=== PATIENT | male | born 1955 | race Caucasian/White ===

== ENCOUNTER 2017-03-06 14:05 | Emergency (ER) | payer OTHER ==
[~2017-03-06] VITALS: Ht 162.6 cm; Wt 67.1 kg
[2017-03-06 14:08] VITALS: Ht 162.6 cm; Wt 67.1 kg
[2017-03-06 16:51] LABS: ADD SCAN DIFF NO
[2017-03-06 16:54] LABS: BASOPHIL # 0.1 10^3/ul (0.0-0.1); BASOPHILS % 0.8 % (0.0-2.0); EOSINOPHILS # 1.1 10^3/ul (0.0-0.5); EOSINOPHILS % 12.7 % (0.0-7.0); HEMATOCRIT 39.8 % (42.0-52.0); HEMOGLOBIN 13.8 g/dl (14.0-18.0); LYMPHOCYTES # 1.7 10^3/ul (0.8-2.9); LYMPHOCYTES % 18.5 % (15.0-51.0); MEAN CORPUSCULAR HEMOGLOBIN 33.1 pg (29.0-33.0); MEAN CORPUSCULAR HGB CONC 34.7 g/dl (32.0-37.0); MEAN CORPUSCULAR VOLUME 95.4 fl (82.0-101.0); MEAN PLATELET VOLUME 8.9 fl (7.4-10.4); MONOCYTES % 10.9 % (0.0-11.0); NEUTROPHIL # 5.1 10^3/ul (1.6-7.5); NEUTROPHILS % 56.9 % (39.0-77.0); PLATELET COUNT 386 10^3/UL (140-415); RED BLOOD COUNT 4.17 10^6/ul (4.70-6.10); WHITE BLOOD COUNT 8.9 10^3/ul (4.8-10.8)
[2017-03-06 17:04] LABS: ALBUMIN 4.8 g/dl (3.3-4.9); POTASSIUM 4.2 mmol/L (3.5-5.1)
[2017-03-06 17:06] LABS: BILIRUBIN,INDIRECT 0.6 mg/dl (0-1.1); BILIRUBIN,TOTAL 0.6 mg/dl (0.2-1.3); CREATININE 0.55 mg/dl (0.61-1.24)
[2017-03-06 17:07] LABS: ALBUMIN/GLOBULIN RATIO 1.09; CALCIUM 10.3 mg/dl (8.4-10.2); TOTAL PROTEIN 9.2 g/dl (6.1-8.1)
--- NOTE | 2017-03-06 17:24 | RADRPT ---
PROCEDURE: Chest x-ray CLINICAL INDICATION: Neck swelling TECHNIQUE: Chest single view COMPARISON: None FINDINGS: The heart is normal in size. The pulmonary vessels are normal in caliber. There are calcified nodul ar densities in the right upper lung likely representing old granuloma. Lungs otherwise clear. Cos tophrenic angles are sharp. Bony thorax is unremarkable IMPRESSION: No acute cardiopulmonary disease. 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
[2017-03-06] MEDS ORDERED: IOHEXOL 300MG/ML 150 ML BTL ONE (18:57)
[2017-03-06] MEDS ORDERED: SOD CHLORIDE 0.9% 100 ML ONE (18:57)
--- NOTE | 2017-03-06 19:25 | RADRPT ---
PROCEDURE: CT soft tissue neck with contrast CLINICAL INDICATION: Swelling in left anterior neck TECHNIQUE: A CT of the neck was performed utilizing axial sections from the from the thoracic inle t through the skull base with contrast. Coronal and sagittal images were also reformatted. 100 cc of Omnipaque-300 intravenous contrast was administered. The exam CTDI vol = 8.30 mGy and DLP = 209.16 mGy-cm. COMPARISON: None available FINDINGS: Visualized intracranial structures and skull base: Incidental arachnoid cyst of the posterior fossa is noted with no density alteration seen in the brain parenchyma, the fourth ventricle midline. The included orbits, paranasal sinuses and mastoid air cells are clear Nasopharynx, oropharynx and tongue base: Dental amalgam artifact limits fine evaluation but there is no evidence of mass or inflammation, the parapharyngeal fat planes are preserved Parotid and funeral driver spaces: The glands and muscles of mastication show no intrinsic abnormality. There is suggestion of periapical lucency surrounding the most posterior left mandibular molar (ser ies 3 image 31) but cannot exclude dental infection without osseous changes of the mandible Carotid spaces: The most striking finding is corresponding to the region of concern in the left neck deep to the sternocleidomastoid muscle, the abnormality having an irregular peripheral rim of enhan cement and central hypodensity the largest component of the suspected abscess estimated at 3.1 x 3 x 3.5 cm in AP, transverse and cranial caudal dimensions respectively (series 3 image 38 - 41). Ther e are additional satellite abscesses along the more anterior inferior aspect of the left carotid spa ce extending to the level of the carotid bifurcation. The dominant abscess is posterior to the mid internal and external carotid arteries.. There is some enhancement seen within the small left inter nal jugular vein caudal to the abnormalities, the right internal jugular vein is normal. Associated thrombosis of the left internal jugular vein is difficult to exclude. The right carotid space is r emarkable for level III adenopathy measuring 1.7 x 1.4 cm (series 3 image 39). There is extrinsic mass effect upon the right jugular vein Submandibular and submental spaces: The glands and lymph nodes are normal there is no evidence of in flammation. Minimal thickening of the left platysma is likely related to the left carotid space abn ormalities Posterior triangles: No abnormalities of significance are seen Larynx and infraglottic airway: The epiglottis is unremarkable. Diffuse nonspecific left periglotti c edema is noted. The left aryepiglottic fold and piriform sinus are irregular, a hypodense area al tatiana the left focal cord estimated at 1.8 x 1.3 cm cannot exclude a possible mass (series 3 image 50) . The trachea is unremarkable Visceral space: The thyroid gland shows no abnormality. The cervical esophagus is unremarkable Supraclavicular fossae: The lymph nodes are within limits of normal for size bilaterally Visualized thorax: No abnormalities of significance are seen Cervical spine: Moderate multilevel degenerative changes are noted without evidence of acute osseous abnormality, lytic or blastic lesion RPTAT:HJJR IMPRESSION: 1. Irregularly marginated peripherally enhancing centrally hypodense left carotid space collections most likely reflect abscesses, the largest estimated at 2.5 x 3.1 x 3 cm deep to the mid sternoclei domastoid muscle. Necrotic lymphadenopathy is a differential diagnostic possibility. 2. Partial thrombosis of the mid left internal jugular vein is difficult to exclude, the more cauda l aspects of the left internal jugular vein show normal enhancement. 3. Asymmetric fullness in the region of the left vocal cord and aryepiglottic fold may be reactive edema related to the left periglottic space edema but underlying laryngeal neoplasm is difficult to exclude an direct visualization should be considered. 4. Right level III carotid lymphadenopathy of 1.7 x 1.4 cm. 5. Equivocal subtle periapical lucency at the most posterior left molar unable to exclude tooth inf ection. Physician Madelin Date Time Electronically viewed and signed by Physician Madelin on 03/06/2017 19:25 /
[2017-03-06] MEDS ORDERED: AMOX1TAB10 PO (19:45)
--- NOTE | 2017-03-06 20:21 | ERD ---
ER Documentation Chief Complaint Date/Time DATE: 03/06/17 TIME: 20:11 Chief Complaint left side neck swelling x 1 mos, no airway compromise HPI This is a 61-year-old male presents emergency department for left-sided neck swelling and pain 1 month. Patient states he began having a sore throat about 1 month ago and was given amoxicillin. Since then, he has noticed swelling to the left side of his neck. Patient states he was seen by his primary care provider and was told to follow-up with a specialist Dr. Mcnally. Patient is unable to make appointment. No difficulty swallowing or drooling. Denies sore throat. No fevers or chills. Denies chest pain, shortness of breath or difficulty breathing. ROS All systems reviewed and are negative except as per history of present illness. Medications Home Meds Active Scripts Amoxicillin/Potassium Clav (Amox-Clav 875-125 mg Tablet) 875-125 mg Tab, 1 TAB PO BID for 7 Days, #14 TAB Prov:MEDHAT MULLEN NP 03/06/17 PMhx/Soc Hx Miscellaneous Medical Probl: Yes (HODGKIN'S LYMPHOMA) Physical Exam Vitals Vital Signs Date Time Temp Pulse Resp B/P Pulse Ox O2 Delivery O2 Flow Rate FiO2 03/06/17 14:08 98.1 77 18 143/72 99 Physical Exam Const: No acute distress, alert Head: Atraumatic Eyes: Normal Conjunctiva ENT: Normal External Ears, Nose and Mouth. Neck: Full range of motion..~ No meningismus. Resp: Clear to auscultation bilaterally. No wheezing, rhonchi or crackles. No stridor or labored breathing. Cardio: Regular rate and rhythm, no murmurs Abd: Soft, non tender, non distended. Normal bowel sounds Skin: No petechiae or rashes Back: No midline or flank tenderness Ext: No cyanosis, or edema Neur: Awake and alert Psych: Normal Mood and Affect Result Diagram: 03/06/17 1640 03/06/17 1640 Results 24 hrs Laboratory Tests Test 03/06/17 16:40 White Blood Count 8.910^3/ul Red Blood Count 4.1710^6/ul Hemoglobin 13.8g/dl Hematocrit 39.8% Mean Corpuscular Volume 95.4fl Mean Corpuscular Hemoglobin 33.1pg Mean Corpuscular Hemoglobin Concent 34.7g/dl Red Cell Distribution Width 13.0% Platelet Count 46066^3/UL Mean Platelet Volume 8.9fl Neutrophils % 56.9% Lymphocytes % 18.5% Monocytes % 10.9% Eosinophils % 12.7% Basophils % 0.8% Nucleated Red Blood Cells % 0.0/100WBC Neutrophils # 5.110^3/ul Lymphocytes # 1.710^3/ul Monocytes # 1.010^3/ul Eosinophils # 1.110^3/ul Basophils # 0.110^3/ul Nucleated Red Blood Cells # 0.010^3/ul Sodium Level 134mmol/L Potassium Level 4.2mmol/L Chloride Level 94mmol/L Carbon Dioxide Level 28mmol/L Anion Gap 16 Blood Urea Nitrogen 7mg/dl Creatinine 0.55mg/dl Glucose Level 103mg/dl Calcium Level 10.3mg/dl Total Bilirubin 0.6mg/dl Direct Bilirubin 0.00mg/dl Indirect Bilirubin 0.6mg/dl Aspartate Amino Transf (AST/SGOT) 43IU/L Alanine Aminotransferase (ALT/SGPT) 26IU/L Alkaline Phosphatase 88IU/L Total Protein 9.2g/dl Albumin 4.8g/dl Globulin 4.40g/dl Albumin/Globulin Ratio 1.09 Current Medications Medications (Trade) Dose Ordered Sig/[place] Route PRN Reason Start Time Stop Time Status Last Admin Dose Admin IV Flush 10 ml 10 ml STK-MED ONCE .ROUTE 03/06/17 18:57 03/06/17 18:58 DC 03/06/17 19:05 Sodium Chloride (NS) 100 ml @ ud STK-MED ONCE .ROUTE 03/06/17 18:57 03/06/17 18:58 DC 03/06/17 19:05 Iohexol (Omnipaque 300mg/ ml) 150 ml STK-MED ONCE .ROUTE 03/06/17 18:57 03/06/17 18:58 DC 03/06/17 19:05 Procedures/MDM ED COURSE: The patient was stable throughout ED course. I kept the patient and/or family informed of laboratory and diagnostic imaging results throughout the ED course. Laboratory CBC no significant anemia or infection CMP no significant electrolyte imbalance Microbiology Rapid strep negative Imaging Patient: DANIELLE GREENFIELD : 1955 Age: 61 Sex: M MR #: [id number] DOS: 03/06/171623 Ordering MD: MEDHAT MULLEN NP Location: [facility] Room/Bed: PROCEDURE: Chest x-ray CLINICAL INDICATION: Neck swelling TECHNIQUE: Chest single view COMPARISON: None FINDINGS: The heart is normal in size. The pulmonary vessels are normal in caliber. There are calcified nodular densities in the right upper lung likely representing old granuloma. Lungs otherwise clear. Costophrenic angles are sharp. Bony thorax is unremarkable IMPRESSION: No acute cardiopulmonary disease. 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 Coronal and sagittal images were also reformatted. 100 cc of Omnipaque-300 intravenous contrast was administered. The exam CTDI vol = 8.30 mGy and DLP = 209.16 mGy- cm. COMPARISON: None available FINDINGS: Visualized intracranial structures and skull base: Incidental arachnoid cyst of the posterior fossa is noted with no density alteration seen in the brain parenchyma, the fourth ventricle midline. The included orbits, paranasal sinuses and mastoid air cells are clear Nasopharynx, oropharynx and tongue base: Dental amalgam artifact limits fine evaluation but there is no evidence of mass or inflammation, the parapharyngeal fat planes are preserved Parotid and carbonizer tester spaces: The glands and muscles of mastication show no intrinsic abnormality. There is suggestion of periapical lucency surrounding the most posterior left mandibular molar (series 3 image 31) but cannot exclude dental infection without osseous changes of the mandible Carotid spaces: The most striking finding is corresponding to the region of concern in the left neck deep to the sternocleidomastoid muscle, the abnormality having an irregular peripheral rim of enhancement and central hypodensity the largest component of the suspected abscess estimated at 3.1 x 3 x 3.5 cm in AP, transverse and cranial caudal dimensions respectively (series 3 image 38 - 41). There are additional satellite abscesses along the more anterior inferior aspect of the left carotid space extending to the level of the carotid bifurcation. The dominant abscess is posterior to the mid internal and external carotid arteries.. There is some enhancement seen within the small left internal jugular vein caudal to the abnormalities, the right internal jugular vein is normal. Associated thrombosis of the left internal jugular vein is difficult to exclude. The right carotid space is remarkable for level III adenopathy measuring 1.7 x 1.4 cm (series 3 image 39). There is extrinsic mass effect upon the right jugular vein Submandibular and submental spaces: The glands and lymph nodes are normal there is no evidence of inflammation. Minimal thickening of the left platysma is likely related to the left carotid space abnormalities Posterior triangles: No abnormalities of significance are seen Larynx and infraglottic airway: The epiglottis is unremarkable. Diffuse nonspecific left periglottic edema is noted. The left aryepiglottic fold and piriform sinus are irregular, a hypodense area along the left focal cord estimated at 1.8 x 1.3 cm cannot exclude a possible mass (series 3 image 50). The trachea is unremarkable Visceral space: The thyroid gland shows no abnormality. The cervical esophagus is unremarkable Supraclavicular fossae: The lymph nodes are within limits of normal for size bilaterally Visualized thorax: No abnormalities of significance are seen Cervical spine: Moderate multilevel degenerative changes are noted without evidence of acute osseous abnormality, lytic or blastic lesion RPTAT:HJJR IMPRESSION: 1. Irregularly marginated peripherally enhancing centrally hypodense left carotid space collections most likely reflect abscesses, the largest estimated at 2.5 x 3.1 x 3 cm deep to the mid sternocleidomastoid muscle. Necrotic lymphadenopathy is a differential diagnostic possibility. 2. Partial thrombosis of the mid left internal jugular vein is difficult to exclude, the more caudal aspects of the left internal jugular vein show normal enhancement. 3. Asymmetric fullness in the region of the left vocal cord and aryepiglottic fold may be reactive edema related to the left periglottic space edema but underlying laryngeal neoplasm is difficult to exclude an direct visualization should be considered. 4. Right level III carotid lymphadenopathy of 1.7 x 1.4 cm. 5. Equivocal subtle periapical lucency at the most posterior left molar unable to exclude tooth infection. MDM: 61-year-old male presents to the emergency department for left-sided anterior neck swelling 1 month. No shortness of breath, difficult to breathing , chest pain, difficulty swallowing or drooling. Swelling is not painful to touch. Labs are unremarkable. CT neck soft tissue reviewed by radiologist as irregularly marginated peripherally enhancing centrally hypodense left carotid space collections most likely reflect abscesses, the largest estimated at 2.5 x 3.1 x 3cm Asymmetric fullness in the region of the left vocal cord and aryepiglottic fold may be reactive edema related to the left periglottic space edema but underlying laryngeal neoplasm is difficult to exclude an direct visualization should be considered. Right level III carotid lymphadenopathy. Patient's vital signs are stable. Remains afebrile. No difficulty breathing, difficulty swallowing or drooling. No muffled voice. Strep swab is negative. Labs are unremarkable. No significant infection or anemia. Spoke with Dr. Guzman regarding this patient and we agree that patient is appropriate for outpatient management with Augmentin and follow-up with Dr. Lopez as soon as possible. Differential diagnosis includes but not limited to abscess, necrotic lymphadenopathy, mass, laryngeal neoplasm, lymphadenopathy and deep space infection. Patient will be discharged with prescription for Augmentin and resources provided for Dr. Lopez. Instructed patient to follow-up with Dr. Lopez as soon as possible in the next 24-48 hours for reassessment and additional management. Return to ED for any high fever, chest pain, difficulty breathing, shortness breath, wheezing, vomiting, diarrhea, abdominal pain or any new or worsening symptoms. Patient verbalizes understanding. All questions answered at discharge. Departure Diagnosis: Primary Impression: Neck swelling Condition: Stable Patient Instructions: When You Have a Sore Throat Referrals: ESTEFANI SLADE (PCP) BEN LOPEZ MD Additional Instructions: Follow-up with Dr. Lopez as soon as possible. Return to ED for any high fever, chest pain, difficulty breathing, shortness breath, wheezing, vomiting, diarrhea, abdominal pain or any new or worsening symptoms MEDHAT MULLEN NP Mar 06, 2017 20:21
== END 2017-03-06 19:55 | disposition home or self-care (01) ==
LOC: FTE 14:05
DX: R22.1 Localized swelling, mass and lump, neck (principal)
CPT/HCPCS: 70491; 71010; 80053; 85025; 87880; Q9967; Z7610; 36415

== ENCOUNTER 2017-06-19 13:47 | Day surgery (SDC) | END 2017-06-19 18:24 | disposition home or self-care (01) | DX: K25.9 Gastric ulcer, unspecified as acute or chronic, without hemorrhage or perforation (principal); R13.10 Dysphagia, unspecified | CPT/HCPCS: 43246; J0690; Z7610 ==